=== PATIENT | female | born 1970 | race Caucasian/White ===

== ENCOUNTER → 2018-10-19 | Outpatient (REF) | LOC: ZLAB.WCH 14:53 | DX: Z01.89 Encounter for other specified special examinations (principal) ==

== ENCOUNTER → 2019-05-08 | Outpatient (CLI) | payer BC ==
[~2019-05-08] VITALS: Ht 153.7 cm; Wt 121.8 kg
[~2019-05-08] MED LIST: CENTRUM1 TA1 PO; LEXAPRO 10MG10 MG PO; SYNTHROID0.088 MG/T PO; VITAMIND3 5000 PO; XANAX 0.5MG0.5 MG PO
[2019-05-08 10:21] VITALS: BP 108/70; PULSE 72
== END ==
LOC: LIGHT 08:59
DX: E03.9 Hypothyroidism, unspecified (principal); R73.01 Impaired fasting glucose; F32.9 Major depressive disorder, single episode, unspecified; E66.01 Morbid (severe) obesity due to excess calories; Z68.43 Body mass index [BMI] 50.0-59.9, adult; Z71.3 Dietary counseling and surveillance
CPT/HCPCS: G0463

== ENCOUNTER → 2019-06-10 | Outpatient (CLI) | payer BC | LOC: LIGHT 05-27 14:30 | DX: E03.9 Hypothyroidism, unspecified (principal); R73.01 Impaired fasting glucose; F32.9 Major depressive disorder, single episode, unspecified; E66.01 Morbid (severe) obesity due to excess calories; Z68.43 Body mass index [BMI] 50.0-59.9, adult; Z71.3 Dietary counseling and surveillance ==

== ENCOUNTER → 2019-06-13 | Outpatient (CLI) | payer BC ==
[~2019-06-13] VITALS: Ht 153.7 cm; Wt 124.1 kg
[~2019-06-13] MED LIST changes: +FASTIN30 MG PO
[2019-06-13 15:50] VITALS: BP 130/76; PULSE 80
== END ==
LOC: LIGHT 08:32
DX: E03.9 Hypothyroidism, unspecified (principal); R73.01 Impaired fasting glucose; F32.9 Major depressive disorder, single episode, unspecified; E66.01 Morbid (severe) obesity due to excess calories; Z68.43 Body mass index [BMI] 50.0-59.9, adult; Z71.3 Dietary counseling and surveillance
CPT/HCPCS: G0463

== ENCOUNTER → 2019-06-24 | Outpatient (CLI) | payer BC | LOC: LIGHT 16:06 | DX: E03.9 Hypothyroidism, unspecified (principal); R73.01 Impaired fasting glucose; F32.9 Major depressive disorder, single episode, unspecified; E66.01 Morbid (severe) obesity due to excess calories; Z68.43 Body mass index [BMI] 50.0-59.9, adult; Z71.3 Dietary counseling and surveillance ==

== ENCOUNTER → 2020-02-06 | Outpatient (CLI) | payer BC ==
[~2020-02-06] VITALS: Ht 153.7 cm; Wt 106.4 kg
[2020-02-06 16:11] VITALS: BP 118/80; PULSE 72
== END ==
LOC: LIGHT 11-14 13:42
DX: E66.01 Morbid (severe) obesity due to excess calories (principal); Z68.43 Body mass index [BMI] 50.0-59.9, adult; R73.01 Impaired fasting glucose; E03.9 Hypothyroidism, unspecified
CPT/HCPCS: G0463